=== PATIENT | female | born 1975 | race Two or more races ===

== ENCOUNTER 2025-06-10 10:34 | Emergency (ER) | payer MEDICAID, OTHER ==
[~2025-06-10] VITALS: Ht 154.9 cm; Wt 63.0 kg
--- NOTE | 2025-06-10 11:40 | ED.PDOC ---
Back pain HPI HPI Comments Avis Bridges is a 49-year-old female with past medical history of DM2 and hypertension. The patient came to ED with chief complain of 3 days of left shoulder pain, 8/10, continue, throbbing-like pain, irradiated to the back, with difficulty raising his arm over her head. The patient reports the pain started while she was at the gym lifting a 20 pounds dumbbell, she had an sudden pain and could not move her shoulder anymore; the patient took alive 200mg po without improvement. Today, the patient reports the pain has persisted and she has not being able to do her normal activities at home, this prompted her visit to the ED. The patient denies other trauma, numbness or tingling sensation on the extremity, headache, fever, chills or other symptoms. The patient will be further assessed. Chief Complaint: Body Pain Time Seen by MD: 10:38 Reviewed Notes: Nurses Notes, Medications, Allergies Allergies: Coded Allergies: NO KNOWN ALLERGIES (Unverified , 06/10/25) Information Source: Patient Mode of Arrival: Ambulatory Timing: Days Duration: Since onset Past Medical History PAST MEDICAL HISTORY: DM, HTN Surgical History (Other): Abdominoplasty and blefaroplasty. ETHANOL OPERATIONS MANAGER History: Denies all ETHANOL OPERATIONS MANAGER Hx Family History Family History: Reviewed,noncontributory to illness Social History Smoker: Non-Smoker Alcohol: Denies ETOH Use Drugs: Denies Drug Use Lives In: Home Constitutional: denies: chills, diaphoresis, fatigue, fever, malaise, sweats, weakness, others EENTM: denies: blurred vision, double vision, ear bleeding, ear discharge, ear drainage, ear pain, ear ringing, eye pain, eye redness, hearing loss, mouth pain, mouth swelling, nasal discharge, nose bleeding, nose congestion, nose pain, photophobia, tearing, throat pain, throat swelling, voice changes, others Respiratory: denies: cough, hemoptysis, orthopnea, SOB at rest, shortness of breath, SOB with excertion, stridor, wheezing, others Cardiovascular: denies: chest pain, dizzy spells, diaphoresis, Dyspnea on exertion, edema, irregular heart beat, left arm pain, lightheadedness, palpitations, PND, syncope, others Gastrointestinal: denies: abdomen distended, abdominal pain, blood streaked bowels, constipated, diarrhea, dysphagia, difficulty swallowing, hematemesis, melena, nausea, poor appetite, poor fluid intake, rectal bleeding, rectal pain, vomiting, others Genitourinary: denies: abnormal vagina bleeding, burning, dyspareunia, dysuria, flank pain, frequency, hematuria, incontinence, pain, , vagina discharge, urgency, others Neurological: denies: dizziness, fainting, headache, left sided numbness, left sided weakness, numbness, paresthesia, pre-existing deficit, right sided numbness, right sided weakness, seizure, speech problems, tingling, tremors, weakness, others Musculoskeletal: reports: others (left Shoulder pain and difficult to raise shoulder above her head. ); denies: back pain, gout, joint pain, joint swelling, muscle pain, muscle stiffness, neck pain Integumetry: denies: bruises, change in color, change in hair/nails, dryness, laceration, lesions, lumps, rash, wounds, others Allergic/Immunocompromised: denies: Difficulty Healing, Frequent Infections, Hives, Itching, others Endocrine: denies: excessive hunger, excessive sweating, excessive thirst, excessive urination, flushing, intolerance to cold, intolerance to heat, unexplained weight gain, unexplained weight loss, others Psychiatric: denies: anxiety, bipolar disorder, depression, hopeless, panic d isorder, schizophrenia, sleepless, suicidal, others Physical Exam Exam Comments Alert, oritented x3. General Appearance: No Apparent Distress, Normal HEENT: Normal ENT Inspection, Pharynx Normal, TMs Normal Neck: Full Range of Motion, Non-Tender, Normal, Normal Inspection Respiratory: Chest Non-Tender, Lungs Clear, No Accessory Muscle Use, No Respiratory Distress, Normal Breath Sounds Cardiovascular: No Edema, No JVD, No Murmur, No Gallop, Normal Peripheral Pulses, Regular Rate/Rhythm Breast Exam: Deferred Gastrointestinal: No Organomegaly, Non Tender, No Pulsatile Mass, Normal Bowel Sounds, Soft Genitalia: Deferred Pelvic: Deferred Rectal: Deferred Extremities: Normal capillary refill, Normal inspection, No pedal edema, Other (Left shoulder: no edema, no bruising. No tender to palpation. ROM limited by pain, patient unable to lift left shoulder over her head. ) Musculoskeletal : Apperance: Normal Neurologic: Alert, hospitality coordinator II-XII nml as Tested, No Motor Deficits, Normal Affect, Normal Mood, No Sensory Deficits Cerebellar Function: Normal Reflexes: Normal Skin: Dry, Normal Color, Warm Lymphatic: No Adenopathy Was a procedure done? Was a procedure done?: No Back Pain Differential Dx Differential Diagnosis: Fracture, Musculoskeletal Pain, Other Other Differential Diagnosis #Left shoulder rotator cuff injury. #left shoulder tendinitis X-Ray, Labs, Meds, VS Vital Signs Date Time Temp Pulse Resp B/P (MAP) Pulse Ox O2 Delivery O2 Flow Rate FiO2 06/10/25 14:27 97 Room Air* 0 21 06/10/25 14:25 98.9 60 16 142/62 (88) 99 98.9 06/10/25 12:14 93 16 99 Room Air* 0 21 06/10/25 12:14 98.2 93 16 135/73 (93) 99 98.2 06/10/25 10:36 98.3 60 16 161/75 100 98.3 Lab Test 06/10/25 12:05 Range/Units Urine Test Negative Negative Current Medications Medications (Trade) Dose Ordered Sig/Ekaterina Route Start Time Stop Time Status Last Admin Ketorolac Tromethamine (Toradol Injection) 30 mg ONCE ONCE IM 06/10/25 11:30 06/10/25 11:31 DC 06/10/25 12:04 X-Ray, Labs, Meds, VS Comment 12:14 The patient was re-evaluated VS: BP: 135/73mmHg. HR 93bpm Left shoulder xray: report is still pending. 14:27 Pain has improved with analgesics Left shoulder xray: CLINICAL INDICATION: Left shoulder injury TECHNIQUE: 3 radiographic views of the left shoulder were obtained. Comparison: None FINDINGS/IMPRESSION: There is no evidence of acute fracture or dislocation. The visualized joint space is well maintained. The alignment is anatomical. There is no radiopaque foreign body. Time of 1ST Reevaluation: 12:14 Reevaluation 1ST: Improved Time of 2ND Reevaluation: 14:27 Reevaluation 2ND: Improved Patient Education/Counseling: Diagnosis, Treatment, Prognosis Family Education/Counseling: Diagnosis, Treatment, Prognosis, Need For Follow Up SEPSIS Sepsis Screen Date sepsis recognized/suspect: Jun 10, 2025 Time Sepsis recognized/suspect: 1039 Recent Procedure: No On Antibiotic Therapy: No Respiratory Rate >20: No Heart Rate >90: No Temp<36 C (96.8 F) or >38.3 C: No SBP <90 or MAP <65 mmHG: No New Acute Mental Status Change: No Is the patient on CPAP, BIPAP,: No Physician Orders L Shoulder 2+ View Xray (06/10/25 11:22) Apply Sling (06/10/25 11:22) Vital Signs Date Time Temp Pulse Resp B/P (MAP) Pulse Ox O2 Delivery O2 Flow Rate FiO2 06/10/25 14:27 97 Room Air* 0 21 06/10/25 14:25 98.9 60 16 142/62 (88) 99 98.9 06/10/25 12:14 93 16 99 Room Air* 0 21 06/10/25 12:14 98.2 93 16 135/73 (93) 99 98.2 06/10/25 10:36 98.3 60 16 161/75 100 98.3 Medications Medications Dose Ordered Sig/Ekaterina Route Start Time Stop Time Status Last Admin Dose Admin Ketorolac Tromethamine 30 mg ONCE ONCE IM 06/10/25 11:30 06/10/25 11:31 DC 06/10/25 12:04 Departure 1 Departure Time of Disposition: 14:27 Impression: Primary Impression: Rotator cuff injury Additional Impression: Tendinitis of shoulder Disposition: 01 HOME / SELF CARE / HOMELESS Condition: Good Additional Instructions: Please read all instructions provided in this packet carefully. You MUST follow-up with your primary care/family doctor in 1 to 2 days. If you are unable to see your primary care/family doctor, please return to our emergency room for re-assessment and re-evaluation in 1 to 2 days. Return to the emergency room here in our facility or to the nearest ER [facility] if your symptoms change or worsen. CONSULTATIONS: you MUST Follow-up for consultation as soon as possible with: -your specialist orthopedics doctor in 1-2 days. You MUST call the consultants office yourself to make an appointment. You may need to arrange that through your insurance and/or your primary/family doctor. If you are unable to see the education consultant in 1 to 2 days, you must return to our emergency room (or any other ER of your choice) for re-assessment and re- evaluation. Adequate fluid hydration. Although you have been discharged from the Emergency Department, this does not mean that you have a "clean bill of health". No definitive diagnosis for your symptoms has been made today. It is possible that you are in the process of developing a serious illness. This is why you must return to the ED without fail if any new or worsening symptoms develop. Below is a copy of your radiological report for follow up: Discharged With: Self, Spouse Comments Goals of care discussed with the patient > 35 min. Discussed plan of care with Dr. Lucero Code status: Full code PCP: Does not recall name at this time. Plan discussed with: Patient, the patient agrees with the plan. Critical Care Note Critical Care Time?: No Stability Stability form required: No Heart Score Heart Score: Heart Score Response (Comments) Value History N/A 0 EKG N/A 0 Age N/A 0 Risk Factors N/A 0 Troponin N/A 0 Total 0 BRANDI WELLS RESIDENT Jun 10, 2025 11:40
[2025-06-10] MEDS: KETOROLAC TROMETH 30 MG/ML 1ML VIAL IM ONE (12:04)
[2025-06-10 12:14] VITALS: PULSE 93; RESP 16; O2SAT 99
--- NOTE | 2025-06-10 13:19 | DVH ---
CLINICAL INDICATION: Left shoulder injury TECHNIQUE: 3 radiographic views of the left shoulder were obtained. Comparison: None FINDINGS/IMPRESSION: There is no evidence of acute fracture or dislocation. The visualized joint space is well maintained. The alignment is anatomical. There is no radiopaque foreign body.
[2025-06-10 14:25] VITALS: BP 142/62; PULSE 60; RESP 16; TEMP 98.9
[2025-06-10 14:27] VITALS: O2SAT 97
== END 2025-06-10 14:35 | disposition home or self-care (01) ==
LOC: ER 10:34
DX: S46.002A Unspecified injury of muscle(s) and tendon(s) of the rotator cuff of left shoulder, initial encounter (principal); M75.92 Shoulder lesion, unspecified, left shoulder; I10 Essential (primary) hypertension; E11.9 Type 2 diabetes mellitus without complications; Z98.890 Other specified postprocedural states; X58.XXXA Exposure to other specified factors, initial encounter; Y93.89 Activity, other specified; Y92.89 Other specified places as the place of occurrence of the external cause; Y99.8 Other external cause status
CPT/HCPCS: 73030; 81025; 96372; 99284; J1885